=== PATIENT | male | born 2000 | race Caucasian/White ===

== ENCOUNTER 2019-06-21 10:13 | Emergency (ER) | payer SELFPAY ==
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
[2019-06-21 10:50] VITALS: BP 127/83; PULSE 83; RESP 17; TEMP 36.7; O2SAT 100
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
[2019-06-21 12:40] VITALS: RESP 20
== END 2019-06-21 12:50 | disposition home or self-care (01) ==
PROVIDERS: Emergency Provider Emergency Medicine
DX: S62.91XA Unspecified fracture of right hand, initial encounter for closed fracture (principal); W22.8XXA Striking against or struck by other objects, initial encounter
CPT/HCPCS: 29125; 73130; 87081; 87880; 99282; 99284

== ENCOUNTER 2022-09-10 00:14 | Emergency (ER) | payer OTHER, BC, SELFPAY ==
[2022-09-10 00:24] VITALS: BP 154/103; PULSE 107; RESP 16; TEMP 36.6; O2SAT 97
--- NOTE | 2022-09-10 01:57 | PC.NURSE ---
Spoke with poison control, they recommend testing for corneal abrasion. notified.
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
[2022-09-10 02:39] VITALS: BP 116/78; PULSE 74; RESP 16; O2SAT 99
== END 2022-09-10 02:41 | disposition home or self-care (01) ==
PROVIDERS: Emergency Provider Preventive Medicine Aerospace Medicine
DX: T53.5X1A Toxic effect of chlorofluorocarbons, accidental (unintentional), initial encounter (principal); T26.62XA Corrosion of cornea and conjunctival sac, left eye, initial encounter; T26.61XA Corrosion of cornea and conjunctival sac, right eye, initial encounter; Z87.891 Personal history of nicotine dependence
CPT/HCPCS: 99283

== ENCOUNTER 2022-09-12 14:24 | Outpatient (CLI) | payer OTHER, SELFPAY ==
--- NOTE | ~2022-09-12 | XR_ITS ---
EXAMINATION: XR chest 2V 09/12/2022 14:56 INDICATION: Shortness of breath PROCEDURE: 2 view chest COMPARISON: No prior studies for comparison. FINDINGS: The lungs are clear. The cardiomediastinal silhouette is within normal limits. There are no pleural effusions. There is no pneumothorax suspected. IMPRESSION: 1: NO ACUTE CARDIOPULMONARY DISEASE. Reviewed, dictated and finalized at location L.
--- NOTE | 2022-09-12 14:46 | ECG_ITS ---
Rate KS QRSd QT QTc P QRS T Severity 61 164 118 399 404 48 17 44 Borderline ECG SINUS RHYTHM INCOMPLETE RIGHT BUNDLE BRANCH BLOCK [90+ ms QRS DURATION, TERMINAL R IN V1/V2, 40+ ms S IN I/aVL/V4/V5/V6] NO PREVIOUS ECG AVAILABLE FOR COMPARISON Electronically Signed On 09-12-2022 18:20:58 CDT by Marlene DUNN
[2022-09-12 14:57] LABS: Basophils Absolute Auto 0.06 K/mm3 (0.00-0.10); Basophils Percent Auto 0.7 % (0.0-1.0); Eosinophils Absolute Auto 0.12 K/mm3 (0.02-0.50); Eosinophils Percent Auto 1.5 % (1.0-6.0); Hematocrit 47.6 % (40.0-54.0); Immature Granulocyte Absolute 0.05 K/mm3 (0.00-0.00); Immature Granulocyte Percent A 0.6 % (0.0-0.0); Lymphocytes Absolute Auto 3.37 K/mm3 (1.10-4.50); Lymphocytes Percent Auto 40.8 % (18.0-42.0); Mean Corpuscular HGB Conc 33.6 g/dL (32.0-36.0); Mean Corpuscular Hemoglobin 29.6 pg (27.0-31.0); Mean Platelet Volume 11.3 fl (8.7-11.0); Monocytes Absolute Auto 0.57 K/mm3 (0.10-0.90); Monocytes Percent Auto 6.9 % (2.0-11.0); Neutrophils Absolute Auto 4.1 K/mm3 (1.7-7.2); Neutrophils Percent Auto 49.5 % (50.0-70.0); Platelet Count Result 304 K/mm3 (150-420); Red Blood Count 5.41 M/mm3 (4.70-6.10); Red Cell Distribution Width 12.7 % (11.6-14.4); White Blood Count 8.3 K/mm3 (4.8-10.8)
[2022-09-12 14:59] LABS: Appearance Urine Clear (Clear); Bilirubin Urine Negative (Negative); Blood Urine Negative (Negative); Color Urine Yellow (Yellow); Glucose Urine UA Negative (Negative); Ketones Urine Negative (Negative); Leukocyte Esterase Ur Negative (Negative); Nitrate Urine Negative (Negative); Protein Urine Negative (Negative); Specific Grav Ur >= 1.030 (1.010-1.020); Urobilinogen Urine 0.2 mg/dL (0.2-1.0)
[2022-09-12 15:08] LABS: Add Urine Microscopic? NO
[2022-09-12 15:19] LABS: Alanine Aminotransferase 61 U/L (16-63); Alkaline Phosphatase 122 U/L (46-116); Anion Gap 9 mmol/L (8-16); Aspartate Amino Transferase 24 U/L (15-37); Blood Urea Nitrogen 14 mg/dL (7-18); Calcium 9.1 mg/dL (8.5-10.1); Carbon Dioxide 26 mmol/L (21-32); Chloride 103 mmol/L (98-108); Estimated Glomerular Filt Rate > 60; Glucose 87 mg/dL (70-99); NT Pro B Type Natriuretic Pept 16 pg/mL (0-125); Osmolality Calculated 285 mOsm/kg (285-295); Potassium 4.2 mmol/L (3.5-5.1); Sodium 138 mmol/L (136-145); Total Protein 7.6 g/dL (6.4-8.2)
== END 2022-09-12 14:25 | disposition home or self-care (01) ==
PROVIDERS: PCP Internal Medicine; Visit Provider Internal Medicine
DX: R06.02 Shortness of breath (principal); Z57.5 Occupational exposure to toxic agents in other industries; I45.19 Other right bundle-branch block
CPT/HCPCS: 36415; 71046; 80053; 81003; 83880; 85025; 93005

== ENCOUNTER 2022-09-17 14:41 | Outpatient (CLI) | payer OTHER, SELFPAY ==
[2022-09-17 14:55] LABS: Basophils Absolute Auto 0.06 K/mm3 (0.00-0.10); Basophils Percent Auto 0.7 % (0.0-1.0); Eosinophils Absolute Auto 0.06 K/mm3 (0.02-0.50); Eosinophils Percent Auto 0.7 % (1.0-6.0); Hematocrit 49.1 % (40.0-54.0); Hemoglobin 16.2 g/dL (14.0-18.0); Immature Granulocyte Absolute 0.04 K/mm3 (0.00-0.00); Immature Granulocyte Percent A 0.5 % (0.0-0.0); Lymphocytes Absolute Auto 2.67 K/mm3 (1.10-4.50); Lymphocytes Percent Auto 32.1 % (18.0-42.0); Mean Corpuscular Hemoglobin 29.4 pg (27.0-31.0); Mean Corpuscular Volume 89.1 fL (78.0-102.0); Mean Platelet Volume 11.7 fl (8.7-11.0); Monocytes Absolute Auto 0.47 K/mm3 (0.10-0.90); Monocytes Percent Auto 5.6 % (2.0-11.0); Neutrophils Percent Auto 60.4 % (50.0-70.0); Platelet Count Result 320 K/mm3 (150-420); Red Blood Count 5.51 M/mm3 (4.70-6.10); Red Cell Distribution Width 12.6 % (11.6-14.4); White Blood Count 8.3 K/mm3 (4.8-10.8)
[2022-09-17 15:08] LABS: D Dimer 0.19 mg/L (0.19-0.50)
== END 2022-09-17 14:42 | disposition home or self-care (01) ==
PROVIDERS: PCP Internal Medicine; Visit Provider Nurse Practitioner Family
DX: R06.02 Shortness of breath (principal)
CPT/HCPCS: 36415; 85025; 85380

== ENCOUNTER 2022-10-10 13:54 | Outpatient (CLI) | payer OTHER, SELFPAY | END 2022-10-10 13:55 | disposition home or self-care (01) | PROVIDERS: PCP Internal Medicine; Visit Provider Internal Medicine | DX: R06.00 Dyspnea, unspecified (principal); R94.2 Abnormal results of pulmonary function studies | CPT/HCPCS: 94060; 94726; 94729 ==

== ENCOUNTER 2023-02-10 13:22 | Outpatient (CLI) | payer BC, SELFPAY ==
--- NOTE | 2023-02-19 11:46 | WPDPFTINT ---
PFT Interpretation DOS: 02/10/2023 There were internal inconsistencies in the testing on this date. The patient is being contacted to repeat the study. Nettie Webster MD
--- NOTE | 2023-02-19 11:59 | WPDSIXMINUTE ---
Six Minute Walk Procedure Procedure Performed Pulmonary Stress Test (6 min walk) Six Minute Walk Six Minute Walk: DATE OF SERVICE: 02/10/2023 REQUESTING: Nettie Webster MD REASON FOR TESTING: dyspnea SIX MINUTE WALK This test was conducted per ATS guidelines. The patient walked while breathing room air. The initial saturation was 97%, and initial heart rate was 107 beats per minute. The patient walked without stopping, completing 304.8 m/1000 ft. The saturation at the end of testing was 98%, and the heart rate was 116 beats per minute. the Anel scale was 1 at the beginning of the test and 1 at the end of the test. IMPRESSION: This is a normal study. The patient did not require supplemental oxygen with exertion. Nettie Webster MD
== END 2023-02-10 13:23 | disposition home or self-care (01) ==
LOC: CHSCARD 13:22
PROVIDERS: PCP Internal Medicine; Visit Provider Internal Medicine Critical Care Medicine
DX: R06.00 Dyspnea, unspecified (principal)
CPT/HCPCS: 94060; 94726; 94729

== ENCOUNTER 2023-02-28 13:09 | Outpatient (CLI) | payer BC, SELFPAY ==
--- NOTE | 2023-03-13 13:25 | WPDPFTINT ---
PFT Procedure Performed PFT Procedure Performed Plethysmography (Lung Vol) PFT Interpretation DOS: 02/28/2023 REQUESTING: Dr Webster REASON FOR TESTING: Dyspnea PULMONARY FUNCTION TESTS the testing on 02/28 was additional testing following his February 10, 2023 PFT with incorrect values for the lung volumes. There was an errer during data acquisition. Results are reliable and reproducible. Spirometry: FEV1 is 4.07 L, 91%, normal. FVC is 5.43 L, 103% predicted, normal. FEV1/FVC is 75% predicted, no bronchodilator administered. Lung volumes: Total lung capacity 93% predicted, 6.67 L. residual volume 1.25 L, 71%. RV/TLC is 19%, within normal range. Airway resistance 175%. Diffusion: DLCO previously reported Feb 10; 89%, DLCO /VA was 103%, normal. Flow volume loop: unremarkable IMPRESSION: This shows borderline airflow obstruction, no bronchodilator administered on the February 28 PFT, normal lung volumes, normal diffusion and normal flow volume loop. Nettie Webster MD
== END 2023-02-28 13:10 | disposition home or self-care (01) ==
LOC: CHSCARD 13:10
PROVIDERS: PCP Internal Medicine; Visit Provider Internal Medicine Critical Care Medicine
DX: R94.2 Abnormal results of pulmonary function studies (principal); R06.02 Shortness of breath
CPT/HCPCS: 94010; 94726

== ENCOUNTER 2023-03-06 12:15 | Emergency (ER) | payer BC, SELFPAY ==
[2023-03-06 12:15] VITALS: BP 143/86; PULSE 115; RESP 18; TEMP 38.2; O2SAT 96
[2023-03-06 13:29] LABS: Strep Group A RT-PCR NOT DETECTED (Negative)
[2023-03-06 13:38] LABS: SARS-CoV-2 RNA PCR Positive (Negative)
[2023-03-06 13:40] LABS: Influenza A QL RT-PCR Negative (Negative); Influenza B QL RT-PCR Negative (Negative); RSV RNA, RT-PCR Negative (Negative)
--- NOTE | 2023-03-06 13:42 | ED.URI ---
HPI - URI/Sore Throat General Chief Complaint: Upper Respiratory Infection Stated Complaint: sick Time Seen by Provider: 03/06/23 12:29 Source: patient Mode of arrival: ambulatory Limitations: no limitations History of Present Illness HPI Narrative: this is a 23-year-old male with 2 day history of cough congestion is running a temperature 100,8, with no shortness of breath no audible wheezing has a nonproductive cough with sinus congestion and body aches. MD elicited complaint: cough, sore throat and nasal congestion Onset (ago): day(s) Consistency: constant Severity: moderate Related Data Allergies Allergy/AdvReac Type Severity Reaction Status Date / Time No Known Allergies Allergy Unverified 03/06/23 13:24 Review of Systems Review of Systems: All systems reviewed & are unremarkable except as noted in HPI and below PMFSH Past Medical History Medical History Fracture of hand Surgical History Surgical History No significant past surgical history 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semitrucks, quit smoking 4 months ago Smoking status: Former smoker Tobacco type: cigarettes Living arrangements: with family Gender identity (if verbalized by the patient): Male Exam Const: General: no acute distress Nutritional Appearance: well nourished Orientation/consciousness: patient oriented x3 HENMT: Other: Sinus congestion Eyes: Conjunctivae: conjunctivae normal Neck: Neck: normal visual inspection and no lymphadenopathy Chest: Chest palpation & inspection: normal inspection of the chest Resp: Effort & Inspection: normal respiratory effort Auscultation: clear to auscultation bilaterally Cardio: Rate: regular rate Rhythm: regular rhythm Skin: General skin exam: normal color Rashes: no rashes Course Course Emergency Course: patient with negative strep but is positive for COVID and will send medication to his pharmacy, advised Tylenol or Motrin self isolate for a week. Vital Signs Vital signs: Vital Signs Temperature 38.2 C H 03/06/23 12:15 Pulse Rate 115 H 03/06/23 12:15 Respiratory Rate 18 03/06/23 12:15 Blood Pressure 143/86 H 03/06/23 12:15 Pulse Oximetry 96 03/06/23 12:15 Oxygen Delivery Room Air 03/06/23 12:15 Temperature 38.2 C H 03/06/23 12:15 Pulse Rate 115 H 03/06/23 12:15 Respiratory Rate 18 03/06/23 12:15 Blood Pressure 143/86 H 03/06/23 12:15 Pulse Oximetry 96 03/06/23 12:15 Oxygen Delivery Room Air 03/06/23 12:15 MDM - URI/Sore Throat Lab Data Labs: Lab Results 03/06/23 Range/Units 12:38 Influenza A (RT-PCR) Negative (Negative) Influenza B (RT-PCR) Negative (Negative) RSV (RT-PCR) Negative (Negative) SARS-CoV-2 RNA (RT-PCR) Positive A (Negative) Group A Strep (PCR) Not detected (Negative) Critical Care Time Critical Care Time Critical Care Time: No Discharge Plan Discharge Clinical Impression: COVID-19 Patient Disposition: Home, Self-Care Condition: Stable Instructions: Antibiotic Form, COVID-19 (Coronavirus Disease 2019) (ED) Additional Instructions: take medicine as prescribed, can take Tylenol or Motrin drink plenty of fluids isolate x1 week and follow with primary if symptoms persist or worsen. Prescriptions: New Paxlovid 300 mg (150 mg x 2)-100 mg tablets,dose pack See Rx Instructions .ROUTE .COMPLEX Qty: 30 0RF Rx Instructions: take TWO 150 mg tablets of nirmatrelvir with ONE 100 mg tablet of ritonavir twice daily for 5 days Follow-up/Referrals: Marlon Velasco MD [Primary Care Provider] - Stand Alone Forms: Work/School Release IP Time of Disposition: 13:46
[2023-03-06 14:00] VITALS: BP 138/80; PULSE 105; RESP 18; TEMP 37.8; O2SAT 97
== END 2023-03-06 14:01 | disposition home or self-care (01) ==
PROVIDERS: Emergency Provider Emergency Medicine; PCP Internal Medicine
DX: U07.1 COVID-19 (principal); Z87.891 Personal history of nicotine dependence
CPT/HCPCS: 87637; 87651; 99283

== ENCOUNTER 2023-06-03 19:00 | Emergency (ER) | payer BC, SELFPAY ==
--- NOTE | ~2023-06-03 | CT_ITS ---
EXAMINATION: CT abdomen pelvis w con DATE: 06/03/2023 20:00 INDICATION: RIGHT LOWER QUADRANT PAIN TECHNIQUE: Computed tomography (CT) of the abdomen and pelvis was performed with 100 mL Omnipaque-350 intravenous contrast. Automated exposure control and iterative reconstruction technique were employe d. The dose-length product was 835.32 mGy-cm. COMPARISON: 12/11/2016. FINDINGS: Lower thorax: Mild dependent atelectasis. Liver: Normal. Biliary/Gallbladder: Gallbladder is normal. No bile duct dilation. Pancreas: No mass or duct dilation. Spleen: Normal. Adrenals:No mass. Kidneys: No suspicious mass, obstructing stone, or hydronephrosis. GI tract: No small or large bowel dilation. Dilated, hyperemic appendix, with mild surrounding inflam matory change. No perforation or abscess Mesentery/Peritoneum: No ascites, mass, or free air. Retroperitoneum: No mass. Pelvis: Pelvic organs are within normal limits. Soft Tissues: Soft tissues and body wall unremarkable. Bones: No acute osseous finding. IMPRESSION: Acute uncomplicated appendicitis. Reviewed, dictated and finalized at location K.
[2023-06-03 19:03] VITALS: BP 116/78; PULSE 87; TEMP 36.7; O2SAT 100
--- NOTE | 2023-06-03 19:06 | ED.ABDPAIN ---
HPI - Abdominal Pain General Chief Complaint: Abdominal Pain Stated Complaint: abdominal pain Time Seen by Provider: 06/03/23 19:05 History of Present Illness HPI narrative: 23 YEARS OLD WHITE MALE CAME TO THE EMERGENCY ROOM BY PRIVATE CAR COMPLAINING OF RIGHT LOWER QUADRANT PAIN STARTED 4 HOURS PRIOR TO ARRIVAL, ASSOCIATED WITH NAUSEA. PATIENT DENIES ANY RADIATION OF PAIN, FEVER, CHILLS, VOMITING. PATIENT DENIES HISTORY OF ABDOMINAL SURGERY OR HISTORY OF KIDNEY STONE. PATIENT DENIES AGGRAVATING OR RELIEVING FACTORS Related Data Home Medications Medication Instructions Recorded Confirmed No Home Medications 03/28/23 06/03/23 Allergies Allergy/AdvReac Type Severity Reaction Status Date / Time No Known Allergies Allergy Verified 06/03/23 19:15 Review of Systems Review of Systems: All systems reviewed & are unremarkable except as noted in HPI and below PMFSH Past Medical History Medical History Fracture of hand Surgical History Surgical History No significant past surgical history 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semitrucks, quit smoking 4 months ago Smoking status: Former smoker Tobacco type: cigarettes Living arrangements: with family Gender identity (if verbalized by the patient): Male Exam Narrative: GENERAL APPEARANCE: WELL-DEVELOPED, WELL-NOURISHED SKIN: NORMAL COLOR HEAD: NORMOCEPHALIC, NONTRAUMATIC EYES: CLEAR CONJUNCTIVA ENT: OROPHARYNX NORMAL, EARS NORMAL, NOSE NORMAL NECK: SUPPLE, NONTENDER CHEST AND RESPIRATORY: AIRWAY PATENT, NO RESPIRATORY DISTRESS, NO ACCESSORY MUSCLE USE HEART: REGULAR RATE/RHYTHM ABDOMEN: SOFT, RIGHT LOWER QUADRANT TENDERNESS, NO GUARDING OR REBOUND NO ORGANOMEGALY, QUIET BOWEL SOUNDS VASCULAR: NORMAL PERIPHERAL PULSES, NORMAL CAPILLARY REFILL. MUSCULOSKELETAL: NORMAL RANGE OF MOTION, NONTENDER BACK NEUROLOGIC: ALERT AND ORIENTED ?3, DISHCLOTH FOLDER IS NORMAL TESTED, NO GROSS MOTOR DEFICIT Course Vital Signs Vital signs: Vital Signs Temperature 36.7 C 06/03/23 19:03 Pulse Rate 87 06/03/23 19:03 Blood Pressure 116/78 06/03/23 19:03 Pulse Oximetry 100 06/03/23 19:03 Oxygen Delivery Room Air 06/03/23 19:03 Temperature 36.7 C 06/03/23 19:03 Pulse Rate 87 06/03/23 19:03 Blood Pressure 116/78 06/03/23 19:03 Pulse Oximetry 100 06/03/23 19:03 Oxygen Delivery Room Air 06/03/23 19:03 MDM - Abdominal Pain MDM Narrative Medical decision making narrative: PATIENT CAME TO THE ED BY PRIVATE CAR COMPLAINING OF RIGHT LOWER QUADRANT PAIN 4 HOURS PRIOR TO ARRIVAL TO THE EMERGENCY ROOM. PHYSICAL EXAMINATION SHOWED RIGHT LOWER QUADRANT TENDERNESS, DIFFERENTIAL DIAGNOSIS INCLUDE APPENDICITIS, URINARY TRACT INFECTION, KIDNEY STONE, CONSTIPATION, COLITIS BLOOD WORKUP TODAY SHOWED WBC OF 18.9 WITH LEFT SHIFT, TOTAL BILIRUBIN OF 1.1, ALKALINE PHOSPHATASE 126, CT ABDOMEN AND PELVIS WITH IV CONTRAST SHOWED ACUTE UNCOMPLICATED APPENDICITIS LAST MEAL WAS 4 HOURS PRIOR TO ARRIVAL IN THE ED PATIENT RECEIVED 1 L OF NORMAL SALINE IV, 4 MG OF MORPHINE IV, 4 MG OF ZOFRAN IV, 3.375 G OF ZOSYN IV, CURRENTLY PATIENT FEELING MUCH BETTER, HEMODYNAMICALLY STABLE. TRANSFERRED TO [facility] To be admitted to Dr. Hollis Differential Diagnosis Differential diagnosis: Likely other ( ABOVE) Medical Records Attestation: I reviewed the patient's medical records. Lab Data Attestation: I reviewed the patient's lab results. Imaging Data Radiologist's impression: Impressions Ab
[2023-06-03 19:17] LABS: Basophils Absolute Auto 0.07 K/mm3 (0.00-0.10); Basophils Percent Auto 0.4 % (0.0-1.0); Eosinophils Absolute Auto 0.02 K/mm3 (0.02-0.50); Eosinophils Percent Auto 0.1 % (1.0-6.0); Hematocrit 48.9 % (40.0-54.0); Hemoglobin 16.5 g/dL (14.0-18.0); Immature Granulocyte Percent A 0.5 % (0.0-0.0); Lymphocytes Absolute Auto 2.53 K/mm3 (1.10-4.50); Lymphocytes Percent Auto 13.4 % (18.0-42.0); Mean Corpuscular HGB Conc 33.7 g/dL (32-36); Mean Corpuscular Hemoglobin 29.5 pg (27.0-31.0); Mean Corpuscular Volume 87.3 fL (78.0-102.0); Mean Platelet Volume 11.6 fl (8.7-11.0); Monocytes Percent Auto 6.4 % (2.0-11.0); Neutrophils Absolute Auto 14.93 K/mm3 (1.70-7.20); Neutrophils Percent Auto 79.2 % (50.0-70.0); Platelet Count Result 332 K/mm3 (150-420); Red Cell Distribution Width 12.3 % (11.6-14.4); White Blood Count 18.9 K/mm3 (4.8-10.8)
[2023-06-03] MEDS: SODIUM CHLORIDE 0.9% IV 1,000 ML 999 ML IV CONT (19:24)
[2023-06-03] MEDS: ONDANSETRON INJ 4 MG/2 ML VIAL IV PUSH ×2 (19:26)
[2023-06-03] MEDS: MORPHINE SULFATE (*CRX) 4 MG/ML INJ IV PUSH (19:26)
[2023-06-03 19:32] LABS: Alanine Aminotransferase 61 U/L (16-63); Albumin Level 4.1 g/dL (3.4-5.0); Alkaline Phosphatase 126 U/L (46-116); Anion Gap 10 mmol/L (8-16); Aspartate Amino Transferase 22 U/L (15-37); Bilirubin,Total 1.1 mg/dL (0.00-1.00); Blood Urea Nitrogen 11 mg/dL (7-18); Calcium 8.6 mg/dL (8.5-10.1); Carbon Dioxide 29 mmol/L (21-32); Chloride 104 mmol/L (98-108); Estimated CRCL calculation 117 ml/min; Estimated Glomerular Filt Rate > 60; Glucose 96 mg/dL (70-99); Lipase 30 U/L (16-77); Osmolality Calculated 295 mOsm/kg (285-295); Potassium 3.9 mmol/L (3.5-5.1); Sodium 143 mmol/L (136-145); Total Protein 7.5 g/dL (6.4-8.2)
[2023-06-03] MEDS: PIPERACILLN/TAZ 3.375GM/NS50ML 3.375 GM/50 ML BAG IVPB (20:36)
[2023-06-03 20:45] LABS: Appearance Urine Clear (Clear); Bilirubin Urine Negative (Negative); Blood Urine Negative (Negative); Color Urine Yellow (Yellow); Glucose Urine UA Negative (Negative); Ketones Urine Negative (Negative); Leukocyte Esterase Ur Negative LEU/UL (Negative); Nitrate Urine Negative (Negative); Protein Urine Negative (Negative); Urobilinogen Urine 0.2 mg/dL (0.2-1.0); pH Urine 7.5 (5.0-8.0)
[2023-06-03 20:46] LABS: Add Urine Microscopic? NO
[2023-06-03] MEDS: HYDROmorphone HCL INJ (*CRX) 2 MG/ML VIAL 0.5 MG IV PUSH (21:50)
== END 2023-06-03 22:11 | disposition short-term general hospital (02) ==
PROVIDERS: Emergency Provider Emergency Medicine; PCP Internal Medicine
DX: K37 Unspecified appendicitis (principal); Z87.891 Personal history of nicotine dependence
CPT/HCPCS: 36415; 74177; 80053; 83690; 85025; 96361; 96365; 96375; 96376; 99285; J1170; J2270; J2405; J2543; J7030; Q9967

== ENCOUNTER 2023-06-04 01:06 | Observation (INO) | payer BC, SELFPAY ==
--- NOTE | 2023-06-03 22:53 | ADMGEN ---
This patient, Jorge Dominique, was admitted to 3 Med Surg Room 328-01. Patient/family oriented to hospital policies and general routines including ID bracelet, bed and alarms, visiting hours, pain management, procedures, bathroom and other care routines, personal items, smoking policy, room service/diet, and visiting hours. Information on how to activate the Rapid Response Team has been discussed. Patient/Family are encouraged to report perceived risks to care and to ask questions if they do not understand what they are told or what they should do.
[2023-06-03 22:55] VITALS: BMI 30.1
[2023-06-04] VITALS (11 sets, daily range): BP systolic 104–122; BP diastolic 54–70; PULSE 62–103; RESP 10–18; TEMP 36.3–37.3; O2SAT 95–100
[2023-06-04] MEDS: LACTATED RINGERS 1,000 ML 100 ML IV CONT (01:48)
[2023-06-04] MEDS: PIPERACILLN/TAZ 3.375GM/NS50ML 3.375 GM/50 ML BAG IVPB ×3 (01:48→12:31)
[2023-06-04] MEDS: MORPHINE SULFATE (*CRX) 4 MG/ML INJ IV PUSH ×2 (01:49→04:37)
--- NOTE | 2023-06-04 07:27 | P.PNAN_ITS ---
Anes - Initial Pre Proc Eval Procedure: Operation Date: 06/04/23 08:00 Proposed Procedures p Laparoscopic Appendectomy - Israel Hollis DO Date/Time: 06/04/23 07:27 Surgeon: Israel Hollis DO Pre Op Diagnosis: Appendicitis Patient Data Age: 23 Gender: M Height: 1.8 m Weight: 98 kg Last Vital Signs Temp 36.9 C 06/04/23 05:53 Pulse 103 H 06/04/23 05:53 Resp 16 06/04/23 05:53 BP 122/60 06/04/23 05:53 Pulse Ox 95 06/04/23 05:53 O2 Del Method Room Air 06/03/23 23:08 Allergies Allergy/AdvReac Type Severity Reaction Status Date / Time No Known Allergies Allergy Verified 06/03/23 23:10 Home Medications Medication Instructions Recorded Confirmed Type No Home Medications 03/28/23 06/03/23 History Patient hx anesthesia problems: none Family hx anesthesia problems: none Results Review: All pre-operative results and documents have been reviewed as part of the pre- operative evaluation. [facility] Past Medical History Medical History (Updated 06/04/23 @ 07:53 by Israel Hollis DO) Fracture of hand Surgical History Surgical History (Updated 06/04/23 @ 07:50 by Israel Hollis DO) History of tonsillectomy and adenoidectomy No significant past surgical history Family History Family History Mother No problems noted. Father No problems noted. 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semitrucks, quit smoking 4 months ago Smoking status: Current every day smoker Tobacco type: e-cigarettes/vaping Alcohol intake: current Drinks per week: 1 Substance use: never Do You Feel Safe in your Home?: Yes Lack of Transportation: No Lack of Food: Never True Current Housing: I Have Housing Concerned About Future Housing: No Difficulty Paying Gas/Electric Bills: No Difficulty Paying for Meds: No Currently Unemployed: No Education: High School Diploma/GED Difficulty w/ Childcare or Family Care: No Living arrangements: with family Gender identity (if verbalized by the patient): Male Spiritual care concerns: No Anes - Eval Final PreProcedure Day of Procedure 06/04/23 07:27 Patient weight: obese Heart: regular rate and rhythm Lungs: clear to auscultation Airway: Mallampati scale class II Neurological: alert and oriented Last oral intake: >/= 8 hours ASA classification: II Emergent: no Anesthetic plan: proceed Anesthesia type and monitoring: general ETT and standard monitoring Results Review: All pre-operative results and documents have been reviewed as part of the pre-operative evaluation. Informed Consent: The patient's anesthetic plan and its attendant risks and benefits were discussed with the patient/family/POA. Questions were solicited and answers provided to the satisfaction of the patient/family/POA.
--- NOTE | 2023-06-04 07:48 | WPDHPUPDATE1 ---
History and Physical Update Update Date/Time: 06/04/23 07:48 History and Physical has been reviewed, including an updated exam of the patient. There are NO changes in the patient's condition. Risks, benefits, and alternatives have been discussed and questions answered. Patient agrees to proceed with procedure.
--- NOTE | 2023-06-04 07:48 | PM.IMHP ---
H&P: HPI History of Present Illness Date/Time: 06/04/23 07:48 Chief Complaint: RLQ pain Narrative: 23 yo man presented to [facility] last night with RLQ pain that started yesterday. Pain was becoming worse throughout the day and he also vomited once. He is feeling hot and cold but doesn't know if he had a fever. He has never had symptoms like this before. Denies change in bowel habits. Review of Systems Review of Systems: All systems reviewed & are unremarkable except as noted in HPI and below Constitutional: Constitutional: Reports as per HPI Eyes: Eyes: Denies change in vision ENT: Denies hearing loss, Denies neck pain and Denies sore throat Cardiovascular: Cardiovascular: Denies chest pain and Denies dyspnea Respiratory: Respiratory: Denies cough, Denies dyspnea and Denies wheezing Gastrointestinal: Gastrointestinal: Reports as per HPI Genitourinary: Genitourinary: Denies hematuria and Denies dysuria Musculoskeletal: Musculoskeletal: Denies arthralgias, Denies joint swelling and Denies neck pain Allergic/Immunologic: Allergic/Immunologic: Denies wheezing [facility] Past Medical History Medical History (Updated 06/04/23 @ 07:53 by Israel Hollis DO) Fracture of hand Surgical History Surgical History (Updated 06/04/23 @ 07:50 by Israel Hollis DO) History of tonsillectomy and adenoidectomy No significant past surgical history Family History Family History Mother No problems noted. Father No problems noted. 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[employer], quit smoking 4 months ago Smoking status: Current every day smoker Tobacco type: e-cigarettes/vaping Alcohol intake: current Drinks per week: 1 Substance use: never Do You Feel Safe in your Home?: Yes Lack of Transportation: No Lack of Food: Never True Current Housing: I Have Housing Concerned About Future Housing: No Difficulty Paying Gas/Electric Bills: No Difficulty Paying for Meds: No Currently Unemployed: No Education: High School Diploma/GED Difficulty w/ Childcare or Family Care: No Living arrangements: with family Gender identity (if verbalized by the patient): Male Spiritual care concerns: No Meds Home Medications and Allergies Home Medications Medication Instructions Recorded Confirmed Type No Home Medications 03/28/23 06/03/23 History Allergies Allergy/AdvReac Type Severity Reaction Status Date / Time No Known Allergies Allergy Verified 06/03/23 23:10 Vital Signs Vital Signs - 24 hr 06/03/23 23:08 06/04/23 05:53 06/04/23 07:40 Temperature 36.9 C 37.3 C Pulse Rate 103 H 83 Respiratory Rate 16 14 Blood Pressure 122/60 106/60 Pulse Oximetry 95 100 Oxygen Delivery Room Air Room Air Exam Const: General: alert; No acute distress Orientation/consciousness: patient oriented x3 Limitations: no limitations HENMT: Head: normocephalic and atraumatic Ears: hearing grossly normal bilaterally Face/Nose/Sinus: Normal external nose present and Normal nares present Mouth: Yes Normal oral and palatal mucosa present and Yes moist mucous membranes Eyes: General: appearance normal, both eyes and all related structures Conjunctivae: conjunctivae normal Sclera: sclerae normal Pupils: Equal, round and reactive pupils present EOM: EOMs intact bilaterally Neck: Neck: normal visual inspection, full ROM, no lymphadenopathy, supple and no JVD Lymphatic: no lymphadenopathy noted Chest: Chest palpation & inspection: normal inspection of the chest Resp: Effort & Inspection: normal respiratory effort and able to speak in complete sentences Auscultation: clear to auscultation bilaterally Percussion: percussion normal Cardio: Jugular venous distension: no JVD Rate: regular rate Rhythm: regular rhythm Heart sounds: S1 lenora
[2023-06-04] MEDS: LACTATED RINGERS 1,000 ML 30 ML IV CONT (07:53)
[2023-06-04] MEDS: KETOROLAC 15 MG/ML VIAL (*BKC) IV PUSH (07:59)
[2023-06-04] MEDS: ACETAMINOPHEN 500 MG TABLET 1000 MG PO (07:59)
--- NOTE | 2023-06-04 09:07 | W.PM.PROC2 ---
Procedure Note - Detailed Date of Procedure 06/04/23 Pre-op Diagnosis Acute appendicitis Post-op Diagnosis Same Procedure Performed Laparoscopic appendectomy Surgeon Israel Hollis, DO Anesthesia General and Local (0.5% bupivicaine with epinephrine) Indications This is a 23-year-old man who presented to the emergency department in [place] with right lower quadrant pain that started yesterday morning. Pain was worsening and he also experienced nausea and vomiting. The emergency department he was noted to have an elevated white blood count and CT showed evidence of acute appendicitis. Was transferred to [facility] further treatment. Discussions were made with the patient about treatment options and decision was made to proceed laparoscopic appendectomy, possible open. Findings Laparoscopic appendectomy was performed. The appendix appeared dilated and indurated, but there did not appear to be any evidence of perforation or abscess. The base of the appendix appeared healthy and viable. No other intra-abdominal abnormalities were noted. The appendix was removed and sent to the lab for pathology. Description of Procedure Procedure as well as risks, benefits, and alternatives were explained to the patient. The patient agreed to proceed. Written consent was obtained and placed in chart prior to procedure. The patient was brought back to surgical suite. He was placed supine on operating table. Time-out was done to confirm the patient and procedure. The patient was then intubated by the Anesthesia Department. His abdomen was prepped and draped in sterile fashion using chlorhexidine prep. A 5 mm incision was made just to the left of the patient's umbilicus and a 5 mm Optiview trocar was advanced through the abdominal layers under direct visualization. Once inside the peritoneal cavity, carbon dioxide insufflation was used to create a pneumoperitoneum. The camera was inserted and the abdomen was inspected. No immediate abnormalities were identified. The patient was then placed in slight Trendelenburg position and rotated to the left. A 5 mm incision was made in the suprapubic region in midline and a 5 mm trocar was inserted under direct visualization. A 12 mm incision was made in the left lower quadrant and a 12 mm trocar was inserted under direct visualization. The right lower quadrant was carefully inspected. The cecum was identified and then this was traced back to the appendix. The appendix was identified and grasped at the mesoappendix and lifted anteriorly. Careful blunt dissection was carried out at the base of the appendix through the mesoappendix using a [place] grasper. An Endo-MORELIA 45 mm blue load stapler was then advanced across the base of the appendix and clamped and fired. A white reload was then clamped across the mesoappendix and fired. This freed up our appendix completely. It was then placed in an EndoCatch bag and removed through the left lower quadrant port. The staple lines were then inspected. Hemostasis appeared adequate and the staple lines appeared secure. The area was then irrigated with sterile saline. The pelvis was then carefully inspected and irrigated with sterile saline as well and the remainder of the abdomen was carefully inspected. The patient was then flattened out in bed. One final inspection was made around the abdominal cavity and no other abnormalities were seen. The left lower quadrant port was removed and a Tuan-Herberth cone was used to approximate the fascia with an 0 Vicryl simple interrupted suture. The remaining ports were then removed under direct visualization. The camera was removed and the pneumoperitoneum was released. 0.5% bupivacaine with epinephrine was infiltrated locally around each of the incisions. The skin of the incisions was then approximated using 4-0 Monocryl subcuticular suture and Exofin glue was applied on top. The patient was then awakened from anesthesia, extubated,
--- NOTE | 2023-06-04 09:10 | PM.DS ---
DS: Admitting Diagnosis Discharge Date 06/04/2023 Admitting Diagnosis Acute appendicitis with localized peritonitis DS: Discharge Diagnosis Discharge Diagnosis (1) Acute appendicitis with localized peritonitis: Qualifiers: Appendicitis abscess presence: without abscess Appendicitis gangrene presence: without gangrene Appendicitis perforation presence: without perforation Qualified Code(s): K35.30 - Acute appendicitis with localized peritonitis, without perforation or gangrene Code(s): K35.30 - Acute appendicitis with localized peritonitis, without perforation or gangrene Status: Acute DS: Summary Hospital Course Reason for hospitalization: Acute appendicitis Hospital Course: This is a 23-year-old man presented to [facility] on 06/03/2023 with right lower quadrant abdominal pain. He had an elevated white blood count at 18,[address] showed evidence of acute uncomplicated appendicitis. He was started on Zosyn in the emergency department and transferred to [facility] for further treatment. On 06/04/2023 he underwent laparoscopic appendectomy. Surgery was uncomplicated and he was returned to the surgical floor postoperatively. His diet and activity were advanced as tolerated. He was discharged home once his pain was controlled, vitals remained stable, he was ambulating the durán, and tolerating a regular diet. Time spent discussing smoking cessation with patient: 3 to 10 minutes Status at Discharge Functional status at discharge: independent ambulation Overall status at discharge: patient is progressing back to baseline Time Spent with Patient Time attestation: Total time spent providing and/or coordinating discharge services: Time spent: Less than 30 minutes Exam Const: General: no acute distress and alert Orientation/consciousness: patient oriented x3 GI: Inspection: non-distended and incision (intact with glue) DS: Data Data Completed and Pending Pending studies at discharge: Pending at discharge 06/04/23 08:51 Surgical [PTH] Routine Discharge Plan Discharge Attending physician on discharge: Israel Terry Consulting providers: Rod Henry Discharging Clinician: Israel Terry Patient Disposition: Home, Self-Care Activity: other - see discharge instructions Diet: regular Wound Care Instructions: other - see discharge instructions Discharge Instructions: DISCHARGE INSTRUCTION SHEET FOR HERNIA, GALLBLADDER AND APPENDIX SURGERIES DR. TERRY PATIENT TO TAKE HOME 1. May shower in 24 hours, no soaking in bath x 2weeks. 2. Call office for: Wound increasingly painful or bleeding Vomiting Fever of greater than 101 degrees 3. If no bowel movement for three days, take 1 oz. (30 ml) Milk of Magnesia or MiraLax 17g 1 to 2 times daily. 4. No heavy lifting > 10-15 pounds x weeks for hernia repairs and 2 weeks for laparoscopic cholecystectomy or appendectomy. 5. No driving for 3 days or while taking narcotic pain medications. 6. Ice to surgical site for 48 hours (30 min on, then 30 min off). 7. Up walking 10-30 minutes three times per day. 8. Resume previous home medications. 9. Follow-up 10-14 days in office for wound check or as previously scheduled. ([phone]) 10. Oral pain medications prescription to be sent to pharmacy. Take Tylenol 500mg every 6 hours and Ibuprofen 600mg every 6 hours for the first 2 days, then as needed. 11. NUTRITION: Start out by drinking fluids and increase your diet as tolerated. If you experience nausea, try dry toast, crackers, and 7-UP. If nausea or vomiting persists, contact your surgeon?s office. 12. Gallbladders-Low Fat Diet for 2 weeks (send care note of low fat diet) 13. Inguinal Hernias-wear scrotal support for 48 hours 14. Abdominal Hernias-if sent home with abdominal binder, wear for the first 2
[2023-06-04] MEDS: HYDROcodone/acetaminophen (*CRX) 5-325 MG TABLET 1 TAB PO (12:33)
== END 2023-06-04 13:30 | disposition home or self-care (01) ==
PROVIDERS: Admitting Provider Surgery; PCP Internal Medicine; Visit Provider Surgery
PROC: 0DTJ4ZZ Resection of Appendix, Percutaneous Endoscopic Approach (ICD-10-PCS; CPT 44970; principal; 2023-06-04 08:00)
DX: K35.30 Acute appendicitis with localized peritonitis, without perforation or gangrene (principal); F17.290 Nicotine dependence, other tobacco product, uncomplicated; F10.90 Alcohol use, unspecified, uncomplicated
CPT/HCPCS: 44970; 88304; 96365; 96366; 96375; A9270; G0378; G0379; J0330; J1100; J1885; J2250; J2270; J2405; J2543; J2704; J3010; J7030; J7120

== ENCOUNTER 2024-10-05 14:19 | Outpatient (CLI) | payer BC, SELFPAY ==
--- OUTSIDE RECORDS SUMMARY | 2024-10-05 14:23 | XMS_ITS | Clinical Summary ---
Author Organization [facility] Address [address] [place] [id number] Care Team Providers Care Body Wirer Name Role Phone Unavailable Primary Care Provider Unavailabl e Social History Tobacco Use Types Packs/Day Years Used Date Smoking Tobacco: Never Assessed Sex and Gender Information Value Date Recorded Sex Assigned at Not on file Legal Sex Male 10:56 AM CDT Gender Identity Not on file Sexual Orientation Not on file Plan of Treatment Health Maintenance Due Date Last Done Comments HPV VACCINES (1 - Male 3-dose series) 2014 DTAP/TDAP/TD VACCINES (1 - Tdap) 2018 HEPATITIS B VACCINES (1 of 3 - 19+ 3-dose series) 12/22 INFLUENZA VACCINE (#1) 2024
[2024-10-05 14:35] LABS: Hematocrit 47.4 % (40.0-54.0); Hemoglobin 15.9 g/dL (14.0-18.0); Immature Granulocyte Percent A 0.8 % (0.0-0.0); Lymphocytes Absolute Auto 3.05 K/mm3 (1.10-4.50); Mean Corpuscular HGB Conc 33.5 g/dL (32-36); Mean Corpuscular Hemoglobin 29.3 pg (27.0-31.0); Mean Corpuscular Volume 87.3 fL (78.0-102.0); Nucleated Red Blood Cells Absolute Auto 0.00 K/mm3 (0.00-0.00); Nucleated Red Blood Cells Perc 0.0 % (0-0.0); Platelet Count Result 311 K/mm3 (150-420); Red Blood Count 5.43 M/mm3 (4.70-6.10); White Blood Count 7.8 K/mm3 (4.8-10.8)
[2024-10-05 14:46] LABS: INR 1.0; Partial Thromboplastin Time 31.2 Sec (23.9-30.70); Prothrombin Time 10.9 Seconds (9.50-12.1)
[2024-10-05 14:51] LABS: Alanine Aminotransferase 62 U/L (6-50); Albumin Level 4.1 g/dL (3.5-5.1); Alkaline Phosphatase 106 U/L (38-126); Anion Gap 6 mmol/L (4-12); Aspartate Amino Transferase 33 U/L (17-59); Bilirubin,Total 0.7 mg/dL (0.2-1.3); Blood Urea Nitrogen 11 mg/dL (9-20); Calcium 8.8 mg/dL (8.4-10.2); Carbon Dioxide 25 mmol/L (22-30); Chloride 110 mmol/L (98-107); Estimated Glomerular Filt Rate > 60; Glucose 103 mg/dL (65-110); Osmolality Calculated 291 mOsm/kg (285-295); Potassium 4.3 mmol/L (3.4-5.0); Sodium 141 mmol/L (137-145); Total Protein 6.9 g/dL (6.3-8.2)
[2024-10-05 17:06] LABS: Ferritin 74.90 ng/mL (17.9-464)
== END 2024-10-05 14:20 | disposition home or self-care (01) ==
LOC: CHSLAB 14:21
PROVIDERS: PCP Internal Medicine; Visit Provider Internal Medicine
DX: K62.5 Hemorrhage of anus and rectum (principal); R74.01 Elevation of levels of liver transaminase levels
CPT/HCPCS: 36415; 80053; 82728; 85025; 85610; 85730